=== PATIENT | male | born 1980 | race Caucasian/White ===

== ENCOUNTER 2024-11-13 08:36 | Emergency (ER) | payer BC, SELFPAY ==
[2024-11-13] VITALS (32 sets, daily range): BP systolic 124–140; BP diastolic 77–94; PULSE 58–91; RESP 10–23; TEMP 36.6; O2SAT 97–100
--- NOTE | ~2024-11-13 | XR_ITS ---
XR chest 2V Ordering provider: Radha Pedroza APRN History: 44 years Male with . shortness of breath, chest pain . Comparison: None. FINDINGS: MEDIASTINUM: The cardiac silhouette is not enlarged. LUNGS: No infiltrates, effusions or pneumothorax. OTHER: No free air under the diaphragm. IMPRESSION: No acute cardiopulmonary pathology. Reviewed, dictated and finalized at location A.
--- NOTE | ~2024-11-13 | CT_ITS ---
CTA chest PE protocol Ordering provider: Radha Pedroza APRN History: 44 years Male with . shortness of breath, chest pain . Comparison: None. Technique: CT angiogram chest was performed following timed intravenous injection of contrast. Thin s lice axial images and reformatted coronal images were obtained. Three dimensional reformatted images of the chest were also obtained using a [employer] workstation. . Automated exposure control and iterati ve reconstruction technique were employed. The dose-length product was 231.81 mGy-cm. 100 mL Omnipaqu e 350 was given IV. Findings: PULMONARY ARTERIES: No pulmonary embolus. VISUALIZED THORACIC INLET: Normal. MEDIASTINUM: Aorta/coronary arteries: The thoracic aorta is normal. Heart/other: The heart is not enlarged. Lymph nodes: No mediastinal or hilar adenopathy. LUNGS: No pulmonary nodules or masses. No infiltrates or effusions. No pneumothorax. VISUALIZED UPPER ABDOMEN: Postoperative changes in the stomach. Otherwise, the visualized upper abdom en is normal. MUSCULOSKELETAL: Soft tissues: The superficial soft tissues are normal. Bones: Age appropriate degenerative changes of the spine. IMPRESSION: 1. No pulmonary embolism. 2. No acute cardiopulmonary pathology. Reviewed, dictated and finalized at location A.
--- NOTE | 2024-11-13 10:14 | ECG_ITS ---
Test Date: 2024-11-13 10:28:21 Measurements Intervals [place] Rate: 66 P: 59 VA: 149 QRS: 35 QRSD: 86 T: 28 QT: 413 QTc: 433 Interpretive Statements SINUS RHYTHM BASELINE ARTIFACT- III, V3-V6 NORMAL ECG No previous ECG available for comparison Electronically Signed On 11-13-2024 10:34:00 CDT by All Villanueva D.O.
--- NOTE | 2024-11-13 10:15 | ED_ITS ---
HPI - General Adult General Chief complaint: Unspecified Stated complaint: Coughing up blood Time Seen by Provider: 11/13/24 09:01 History of Present Illness HPI narrative: Patient is a 44-year-old male who presents to the ER with complaints of hemoptysis and mild chest pain. He reports symptoms started last night. Patient reports the sputum he is coughing up is bright red with small amounts of dark blood. 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 Patient reports yesterday he did a water bong and believes his symptoms started afterwards. He endorses a history gastric bypass surgery in 2006 and hyperhidrosis. Patient denies any shortness of breath, recent fevers, or acute back pain. He also endorses some intermittent lymph node swelling under his armits and in his neck. Related Data Allergies Allergy/AdvReac Type Severity Reaction Status Date / Time lamotrigine (From Lamictal) Allergy Mild Hives Verified 11/13/24 09:11 Review of Systems 2 Review of Systems: All systems reviewed & are unremarkable except as noted in HPI and below Exam 2 Narrative: GENERAL: Well appearing, well-nourished, non-toxic, in no acute distress. HEAD: Normocephalic, atraumatic. NECK: Supple. No adenopathy, no masses. RESPIRATORY: Airway patent, respirations nonlabored. Clear to auscultation bilaterally, no rales, rhonchi, wheezing. CARDIOVASCULAR: Regular rate and rhythm without murmurs, rubs, or gallops. Peripheral pulses 2+ and equal bilaterally. ABDOMINAL: Soft, nontender, nondistended, no hepatosplenomegaly. Normoactive BS. MUSCULOSKELETAL: Moves all extremities. Strength/ROM intact without gross deformities. SKIN: Warm, dry, normal color. No rashes. NEURO: A&O X3. Speech clear. Cranial nerves II-XII intact. No ataxic movements. PSYCHIATRIC: Appropriate mood and affect. Normal interaction. Course Vital Signs Vital signs: Vital Signs Temperature 36.6 C 11/13/24 08:39 Pulse Rate 77 11/13/24 08:39 Respiratory Rate 18 11/13/24 08:39 Blood Pressure 133/87 11/13/24 08:39 Pulse Oximetry 100 11/13/24 08:39 Temperature 36.6 C 11/13/24 08:39 Pulse Rate 77 11/13/24 08:39 Respiratory Rate 16 11/13/24 09:16 Blood Pressure 133/87 11/13/24 08:39 Pulse Oximetry 100 11/13/24 08:39 Fraction of Inspired Oxygen 99 11/13/24 09:16 Medical Decision Making MDM Narrative Medical decision making narrative: Patient is a 44-year-old male who presents to the ER with complaints of hemoptysis and mild chest pain. He reports symptoms started last night. Patient reports the sputum he is coughing up is bright red with small amounts of dark blood. 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 Patient reports yesterday he did a water bong and believes his symptoms started afterwards. He endorses a history gastric bypass surgery in 2006 and hyperhidrosis. Patient denies any shortness of breath, recent fevers, or acute back pain. Labs Ordered: CBC, CMP, magnesium, PTT, INR, troponin, UDS, D-dimer Imaging Ordered: CTA chest PE, chest x-ray Medications Ordered: Pt declined pain medication Results: Patient's CTA chest indicates PULMONARY ARTERIES: No pulmonary embolus. VISUALIZED THORACIC INLET: Normal. MEDIASTINUM: Aorta/coronary arteries: The thoracic aorta is normal. Heart/other: The heart is not enlarged. Lymph nodes: No mediastinal or hilar adenopathy. LUNGS: No pulmonary nodules or masses. No infiltrates or effusions. No pneumothorax. VISUALIZED UPPER ABDOMEN: Postoperative changes in the stomach. Otherwise, the visualized upper abdomen is normal. MUSCULOSKELETAL: Soft tissues: The superficial soft tissues are normal. Bones: Age appropriate degenerative changes of the spine. Diagnosis: Hemoptysis, costochondritis Risks: HEART score: HEART Score for Major Cardiac Events from [email or web address] on 11/13/2024 All calculations should be rechecked by clinician prior to use RESULT SUMMARY: 1 points Low Score (0-3 points) Risk of MACE of 0.9-1.7%. INPUTS: History ?> 0 = Slightly suspicious EKG ?> 0 = Normal Age ?> 0 = <45 Risk factors ?> 1 = 1-2 risk factors Initial troponin ?> 0 = <=Normal limit Patient Education/Shared MDM: Results of lab work and imaging shared with patient. He does not require any medication at this time. Patient strongly advised to maintain hydration status upon discharge and follow-up with their PCP as soon as possible. He was also advised to refrain from using marijuana. Patient will not be discharged home with any new prescriptions. Strict return precautions provided. Patient verbalized understanding and is in agreement with plan. Vital signs stable at time of discharge. All questions answered. Differential Diagnosis Differential Diagnosis: PE, STEMI, toxic inhalation, pneumonia Vital Signs Vital Signs: Vital Signs Temperature 36.6 C 11/13/24 08:39 Pulse Rate 77 11/13/24 08:39 Respiratory Rate 18 11/13/24 08:39 Blood Pressure 133/87 11/13/24 08:39 Pulse Oximetry 100 11/13/24 08:39 Temperature 36.6 C 11/13/24 08:39 Pulse Rate 77 11/13/24 08:39 Respiratory Rate 16 11/13/24 09:16 Blood Pressure 133/87 11/13/24 08:39 Pulse Oximetry 100 11/13/24 08:39 Fraction of Inspired Oxygen 99 11/13/24 09:16 Lab Data Lab results reviewed: Yes I reviewed the patient's lab results. 11/13/24 10:34 11/13/24 10:34 Labs: Lab Results 11/13/24 Range/Units 10:34 WBC 11.0 H (4.5-10.0) K/mm3 RBC 4.36 L (4.6-6.20) M/mm3 Hgb 12.4 L (14.0-18.0) g/dL Hct 39.2 L (42.0-52.0) % MCV 89.9 (80-100) fl MCH 28.4 (26-34) pg MCHC 31.6 L (32-36) g/dl RDW 14.2 (11.5-14.5) % Plt Count 323 (150-375) k/mm3 MPV 8.8 (7.4-10.4) fl Immature Gran % (Auto) 0.4 (0-0.5) % Neut % (Auto) 79.1 H (45.5-73.1) % Lymph % (Auto) 11.5 L (18.3-44.2) % [place] % (Auto) 8.1 (2.6-8.5) % Eos % (Auto) 0.3 (0-4.4) % Baso % (Auto) 0.6 (0.2-1.2) % Lymph # (Auto) 1.26 (0.9-3.2) K/mm3 [place] # (Auto) 0.9 H (0.1-0.6) K/mm3 Eos # (Auto) 0.0 (0-0.3) K/mm3 Baso # (Auto) 0.1 (0.0-0.1) K/mm3 Abs Immat Gran (auto) 0.04 H (0.00-0.031) K/mm3 Absolute Neuts (auto) 8.7 H (1.3-6.7) K/mm3 Absolute Nucleated RBC 0.000 (0.0-0.012) K/mm3 Nucleated RBC % 0.0 (0.0-0.2) % PT 12.7 (11.1-14.7) Seconds INR 0.9 APTT 28.0 (22.3-36.8) Seconds D-Dimer 1.16 H (<0.48) ug/mL Sodium 139 (137-145) mmol/L Potassium 4.4 (3.4-5.0) mmol/L Chloride 105 (98-107) mmol/L Carbon Dioxide 27 (22-30) mmol/L Anion Gap 7 (4-12) mmol/L BUN 13 (9-20) mg/dL Creatinine 0.76 (0.7-1.3) mg/dL Estim Creat Clear Calc 101 ml/min Estimated GFR > 60 (59 - ) Glucose 105 (65-110) mg/dL Calcium 9.1 (8.4-10.2) mg/dL Magnesium 2.3 (1.6-2.3) mg/dL Total Bilirubin 0.3 (0.2-1.3) mg/dL AST 30 (17-59) U/L ALT 15 (6-50) U/L Alkaline Phosphatase 75 (38-126) U/L Troponin I < 0.012 (0.000-0.034) ng/mL Total Protein 7.7 (6.3-8.2) g/dL Albumin 4.1 (3.5-5.1) g/dL Urine Color Yellow (Yellow) Urine Appearance Clear (Clear) Urine pH 6.0 (5.0-9.0) Ur Specific [place] 1.028 (1.001-1.035) Urine Protein 1+ H (Negative) mg/dL Urine Glucose (UA) Negative (Negative) mg/dL Urine Ketones Trace H (Negative) mg/dL Ur Blood (Man) Negative (Negative) Urine Nitrate Negative (Negative) Urine Bilirubin Negative (Negative) Urine Urobilinogen 1.0 (<2.0) mg/dL Add Ur Microanalysis Reviewed Leukocyte Esterase Rfl Negative (Negative) JULIAN/UL Urine RBC 0-2 (0-2) /hpf Urine WBC 0-5 (0-3) /hpf Ur Squamous Epith Cells None seen (Few) /hpf Urine Bacteria None seen /hpf Urine Casts 0-2 Urine Opiates Screen Negative (Negative) Urine Methadone Screen Negative (Negative) Ur Barbiturates Screen Negative (Negative) Ur Phencyclidine Scrn Negative (Negative) Ur Amphetamine Screen Negative (Negative) U Benzodiazepines Scrn Negative (Negative) Urine Cocaine Screen Negative (Negative) U Cannabinoids Screen Positive A (Negative) Imaging Data Attestation: I personally reviewed and interpreted this imaging study as follows: Radiologist's impression: Impressions Chest X-Ray 11/13/24 10:43 IMPRESSION: No acute cardiopulmonary pathology. Chest CTA 11/13/24 13:02 IMPRESSION: 1. No pulmonary embolism. 2. No acute cardiopulmonary pathology. Discharge Plan Discharge Clinical Impression: Acute costochondritis, Toxic inhalation injury, Cough with hemoptysis Patient Disposition: Home Condition: Stable Instructions: Antibiotic Form, Coughing Up Blood (Hemoptysis) (ED) Additional Instructions: It would be in your best interest to stop smoking marijuana. Please return to the ER with any worsening symptoms. Follow-up with primary care provider as needed. You may take Tylenol at home for pain control. Patient Language: Samoan Follow-up/Referrals: Darvin,Jaya Diaz MD [Primary Care Provider] - Stand Alone Forms: Work/School Release IP Time of Disposition: 13:45
[2024-11-13 10:44] LABS: Basophils Absolute Auto 0.1 K/mm3 (0.0-0.1); Basophils Percent Auto 0.6 % (0.2-1.2); Eosinophils Percent Auto 0.3 % (0-4.4); Hematocrit 39.2 % (42.0-52.0); Hemoglobin 12.4 g/dL (14.0-18.0); Immature Granulocyte Absolute 0.04 K/mm3 (0.00-0.031); Immature Granulocyte Percent A 0.4 % (0-0.5); Lymphocytes Absolute Auto 1.26 K/mm3 (0.9-3.2); Lymphocytes Percent Auto 11.5 % (18.3-44.2); Mean Corpuscular HGB Conc 31.6 g/dl (32-36); Mean Corpuscular Hemoglobin 28.4 pg (26-34); Mean Corpuscular Volume 89.9 fl (80-100); Mean Platelet Volume 8.8 fl (7.4-10.4); Monocytes Absolute Auto 0.9 K/mm3 (0.1-0.6); Monocytes Percent Auto 8.1 % (2.6-8.5); Neutrophils Absolute Auto 8.7 K/mm3 (1.3-6.7); Neutrophils Percent Auto 79.1 % (45.5-73.1); Platelet Count Result 323 k/mm3 (150-375); Red Blood Count 4.36 M/mm3 (4.6-6.20); Red Cell Distribution Width 14.2 % (11.5-14.5)
[2024-11-13 10:53] LABS: Alanine Aminotransferase 15 U/L (6-50); Albumin Level 4.1 g/dL (3.5-5.1); Alkaline Phosphatase 75 U/L (38-126); Anion Gap 7 mmol/L (4-12); Aspartate Amino Transferase 30 U/L (17-59); Bilirubin,Total 0.3 mg/dL (0.2-1.3); Blood Urea Nitrogen 13 mg/dL (9-20); Calcium 9.1 mg/dL (8.4-10.2); Carbon Dioxide 27 mmol/L (22-30); Chloride 105 mmol/L (98-107); Estimated CRCL calculation 101 ml/min; Estimated Glomerular Filt Rate > 60; Glucose 105 mg/dL (65-110); Magnesium 2.3 mg/dL (1.6-2.3); Potassium 4.4 mmol/L (3.4-5.0); Sodium 139 mmol/L (137-145); Total Protein 7.7 g/dL (6.3-8.2)
[2024-11-13 11:05] LABS: Troponin I < 0.012 ng/mL (0.000-0.034)
[2024-11-13 11:06] LABS: INR 0.9; Prothrombin Time 12.7 Seconds (11.1-14.7)
[2024-11-13 11:07] LABS: Add Urine Microscopic? YES; Appearance Urine Clear (Clear); Bacteria Urine None Seen /hpf; Bilirubin Urine Negative (Negative); Blood Urine Negative (Negative); Color Urine Yellow (Yellow); Glucose Urine UA Negative (Negative); Ketones Urine Trace mg/dL (Negative); Leukocyte Esterase Ur Negative LEU/UL (Negative); Need Manual Microscopic Reviewed; Nitrate Urine Negative (Negative); Non Pathogenic Casts 0-2; Protein Urine 1+ mg/dL (Negative); RBC Urine 0-2 /hpf (0-2); Specific Grav Ur 1.028 (1.001-1.035); Squamous Epithelial Cell Urine None Seen /hpf (Few); WBC Urine 0-5 /hpf (0-3)
[2024-11-13 11:09] LABS: D Dimer 1.16 ug/mL (<0.48)
[2024-11-13 11:16] LABS: Amphetamine Screen Urine Negative (Negative); Barbiturate Screen Urine Negative (Negative); Benzodiazepines Screen Urine Negative (Negative); Cannabinoid Screen Urine Positive (Negative); Cocaine Screen Urine Negative (Negative); Methadone Screen Urine Negative (Negative); Opiate Screen Urine Negative (Negative); Phencyclidine Screen Urine Negative (Negative)
== END 2024-11-13 14:01 | disposition home or self-care (01) ==
PROVIDERS: Emergency Provider Registered Nurse; PCP Family Medicine
DX: M94.0 Chondrocostal junction syndrome [Tietze] (principal); R04.2 Hemoptysis; T59.811A Toxic effect of smoke, accidental (unintentional), initial encounter; Z98.84 Bariatric surgery status
CPT/HCPCS: 36415; 71046; 71275; 80053; 80307; 81001; 83735; 84484; 85025; 85380; 85610; 85730; 93005; 99284; Q9967